=== PATIENT | female | born 1980 | race Caucasian/White ===

== ENCOUNTER 2018-05-31 10:06 | Emergency (ER) | payer BC ==
--- NOTE | 2018-05-31 11:48 | RAD REPORT ---
EXAM DESCRIPTION: CT - Stone Protocol - 05/31/2018 11:25 am CLINICAL HISTORY: Abdominal pain. Left-sided pain COMPARISON: None. TECHNIQUE: Computed axial tomography of the abdomen pelvis was obtained without oral or IV contrast. Lack of IV and oral contrast limits evaluation of solid organs, bowel, and vessels. Coronal reformat kaya images were obtained and reviewed. All CT scans are performed using dose optimization technique as appropriate and may include automated exposure control or mA/KV adjustment according to patient size. FINDINGS: A 12 millimeter calculus is present within the lower pole of the left kidney [place] it 1065. 3 millimeter left UVJ calculus with mild left hydronephrosis is seen The liver, spleen, pancreas and adrenals appear grossly normal There is no evidence of diverticulitis. The appendix appears normal A hysterectomy has been performed A 5.8 centimeter complex right ovarian low-density mass is present without significant free-fluid IMPRESSION: 3 millimeter left UVJ calculus with mild left hydronephrosis 5.8 complex right ovarian low-density mass likely representing a benign complex cyst. Follow-up ultra sound in a couple months is recommended to assess stability/resolution
[2018-05-31] MEDS ORDERED: ONDANSETRON 4 MG/2 ML VIAL ONE (12:13)
[2018-05-31] MEDS ORDERED: NA CHLORIDE 0.9% 1,000 ML ONE (12:13)
[2018-05-31] MEDS ORDERED: KETOROLAC 30 MG/ML INJ ONE (12:13)
[2018-05-31 12:22] LABS: Absolute Monocytes 0.5 K/uL (0.1-1.3); Absolute Neutrophil 4.9 K/uL (1.8-8.0); Eosinophils % 0.9 % (0-4.4); Hematocrit 44.1 % (36.0-45.0); MPV 9.7 fL (7.6-11.3); Monocytes % 7.6 % (3.3-12.3); RBC Red Blood Cell Count 4.87 M/uL (3.86-4.86)
[2018-05-31 12:27] LABS: ALT/SGPT 48 U/L (12-78); AST/SGOT 36 U/L (15-37); Albumin 3.7 g/dL (3.4-5.0); Alkaline Phosphatase 77 U/L (45-117); BUN Blood Urea Nitrogen 12 mg/dL (7-18); Bicarbonate 25 mmol/L (21-32); Bilirubin Direct < 0.1 mg/dL (0-0.2); Bilirubin Total 0.4 mg/dL (0.2-1.0); Glucose Level 90 mg/dL (74-106); Lipase 144 U/L (73-393); Potassium 3.8 mmol/L (3.5-5.1); Protein, Total 7.5 g/dL (6.4-8.2); Sodium Level 142 mmol/L (136-145)
--- NOTE | 2018-05-31 13:23 | ER ---
Nurse's Notes 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 Vomit x 1. Pt also kyle headache, sinus congestion, and body aches x 3 days. Transition of care: patient was not received from another setting of care. Onset of symptoms was May 28, 2018. Risk Assessment: Do you want to hurt yourself or someone else? Patient reports no desire to harm self or others. Care prior to arrival: None. 10:23 Method Of Arrival: Ambulatory hb 10:23 Acuity: CARLOS 3 hb 11:00 Initial Sepsis Screen: Does the patient meet any 2 criteria? No. Patient's initial rb1 sepsis screen is negative. Does the patient have a suspected source of infection? No. Patient's initial sepsis screen is negative. Triage Assessment: 11:00 GI: Reports nausea, vomiting. 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 - Social history:: Smoking status: Patient uses tobacco products, smokes one-half pack cigarettes per day. - Ebola Screening: : No symptoms or risks identified at this time. Screenin:00 Abuse screen: Denies threats or abuse. Nutritional screening: No deficits noted. rb1 Tuberculosis screening: No symptoms or risk factors identified. Fall Risk None identified. Assessment: 11:00 General: Appears in no apparent distress. comfortable, Behavior is calm, cooperative, rb1 Denies fever. Pain: Complains of pain in left flank Pain radiates to groin Pain currently is 1 out of 10 on a pain scale. Neuro: Level of Consciousness is awake, alert, obeys commands, Oriented to person, place, time, situation. Cardiovascular: Capillary refill < 3 seconds is brisk in bilateral fingers. Respiratory: Airway is patent Respiratory effort is even, unlabored, Respiratory pattern is regular, symmetrical. GI: Abdomen is non-distended, Last BM was May 31, 2018. : No signs and/or symptoms were reported regarding the genitourinary system. Derm: Skin is pink, warm \T\ dry. 12:00 Reassessment: Patient appears in no apparent distress at this time. No changes from rb1 previously documented assessment. Daughter at bedside. 13:00 Reassessment: Patient appears in no apparent distress at this time. Patient and/or rb1 family updated on plan of care and expected duration. Pain level reassessed. Patient is alert, oriented x 3, equal unlabored respirations, skin warm/dry/pink. Patient states feeling better. Vital Signs: 10:25 BP 147 / 102; Pulse 89; Resp 16; Temp 98.7; Pulse Ox 100% on R/A; Pain 1/10; hb 11:25 BP 111 / 72; Pulse 72; Resp 17; Pulse Ox 96% on R/A; rb1 12:12 BP 100 / 65; Pulse 73; Resp 16; Pulse Ox 95% on R/A; rb1 13:09 BP 109 / 77; Pulse 86; Resp 17; Pulse Ox 96% on R/A; rb1 ED Course: 10:10 Patient arrived in ED. rg4 10:10 Filemon Barnett MD is Private Physician. rg4 10:25 Triage completed. hb 10:26 Arm band placed on right wrist. hb 10:55 Naomi Farr, BRENDAN is Primary Nurse. rb1 10:59 Geoffrey Vega PA is PHCP. jmm 10:59 Darshan Frost MD is Attending Physician. jmm 11:00 Patient has correct armband on for positive identification. Bed in low position. Call rb1 light in reach. Side rails up X 1. Pulse ox on. NIBP on. 11:24 CT completed. Patient tolerated procedure well. Patient moved to CT via wheelchair. jg6 Patient moved back from CT. 11:26 CT Stone Protocol In Process Unspecified. EDMS 11:55 Inserted saline lock: 22 gauge in left antecubital area, using aseptic technique. Blood rb1 collected. 13:21 Teresa Haro MD is Referral Physician. [facility] 13:42 No provider procedures requiring assistance completed. IV discontinued, intact, rb1 bleeding controlled, No redness/swelling at site. Pressure dressing applied. Administered Medications: 12:05 Drug: NS 0.9% 1000 ml Route: IV; Rate: 1 bolus; Site: left antecubital; rb1 12:05 Drug: Zofran 4 mg Route: IVP; Site: left antecubital; rb1 12:20 Follow up: Response: No adverse reaction; Nausea is decreased rb1 12:05 Drug: Ketorolac 30 mg Route: IVP; Site: left antecubital; rb1 12:20 Follow up: Response: No adverse reaction; Pain is decreased rb1 Outcome: 13:22 Discharge ordered by . nemesio 13:42 Discharged to home ambulatory, with family. rb1 13:42 Condition: stable 13:42 Discharge instructions given to patient, Instructed on discharge instructions, follow up and referral plans. medication usage, Demonstrated understanding of instructions, follow-up care, medications, Prescriptions given X 4. 13:46 Patient left the ED. rb1 Signatures: Dispatcher [employer] EDMS Geoffrey Vega PA PA jmm Barber, Rebecca, RN RN rb1 Kindra Gregory, Iliana Arredondo RN4 Clarice Ching6
--- NOTE | 2018-05-31 13:23 | EDPHYS ---
Physician Documentation [facility] Name: Liana Chou Age: 38 yrs Sex: Female : 1980 Arrival Date: 05/31/2018 Time: 10:10 Bed 16 Private MD: Filemon Barnett T ED Physician Darshan Frost HPI: 05/31 11:14 This 38 yrs old Female presents to ER via Ambulatory with complaints of Flank jmm Pain, Vomiting. 11:14 The patient complains of pain in the left flank. The pain radiates to the groin. Onset: jmm The symptoms/episode began/occurred acutely, today. This is a 38 year old female that presents to the ED with left flank pain and vomiting beginning today. Patient states having ongoing symptoms of sinus congestion. Denies diarrhea. States symptoms are no similar to a previous episode of ruptured ovarian cyst. . 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 - Social history:: Smoking status: Patient uses tobacco products, smokes one-half pack cigarettes per day. - Ebola Screening: : No symptoms or risks identified at this time. ROS: 11:14 Constitutional: Negative for fever, chills, and weight loss, Eyes: Negative for injury, jmm pain, redness, and discharge, Cardiovascular: Negative for chest pain, palpitations, and edema. 11:14 ENT: Positive for sinus congestion. 11:14 Respiratory: Positive for cough. 11:14 Abdomen/GI: Positive for nausea and vomiting, flank pain. 11:14 All other systems are negative. Exam: 11:14 Constitutional: This is a well developed, well nourished patient who is awake, alert, jmm and in no acute distress. Head/Face: atraumatic. Eyes: EOMI, no conjunctival erythema appreciated ENT: Moist Mucus Membranes Neck: Trachea midline, Supple Chest/axilla: Normal chest wall appearance and motion. Cardiovascular: Regular rate and rhythm. No edema appreciated Respiratory: Normal respirations, no respiratory distress appreciated 11:14 Abdomen/GI: Inspection: abdomen appears normal, Bowel sounds: normal, Palpation: soft, mild abdominal tenderness, in the left lower quadrant. 11:14 Back: ROM is normal. 11:14 Musculoskeletal/extremity: ROM: intact in all extremities. 11:14 Skin: Appearance: Color: normal in color. 11:14 Neuro: Orientation: is normal, Mentation: is normal, Memory: is normal. 11:14 Psych: Behavior/mood is pleasant, cooperative. Vital Signs: 10:25 BP 147 / 102; Pulse 89; Resp 16; Temp 98.7; Pulse Ox 100% on R/A; Pain 1/10; hb 11:25 BP 111 / 72; Pulse 72; Resp 17; Pulse Ox 96% on R/A; rb1 12:12 BP 100 / 65; Pulse 73; Resp 16; Pulse Ox 95% on R/A; rb1 13:09 BP 109 / 77; Pulse 86; Resp 17; Pulse Ox 96% on R/A; rb1 MDM: 11:08 Patient medically screened. [facility] 13:20 Data reviewed: vital signs, nurses notes. Counseling: I had a detailed discussion with nemesio the patient and/or guardian regarding: the historical points, exam findings, and any diagnostic results supporting the discharge/admit diagnosis, lab results, radiology results, the need for outpatient follow up, to return to the emergency department if symptoms worsen or persist or if there are any questions or concerns that arise at home. ED course: Patient is alert and non toxic in appearance in the ED. Patient is able to tolerate PO. Patient given return precautions for increased pain, vomiting, ext. Patient understood and agrees with the plan of care. . 05/31 10:42 Order name: Urine Microscopic Only snw 05/31 11:12 Order name: Basic Metabolic Panel; Complete Time: 13: [facility] 05/31 11:12 Order name: CBC with Diff; Complete Time: 13: [facility] 05/31 11:12 Order name: Creatinine for Radiology; Complete Time: 13: [facility] 05/31 11:12 Order name: Hepatic Function; Complete Time: 13: [facility] 05/31 11:12 Order name: Lipase; Complete Time: 13:08 [facility] 05/31 11:12 Order name: IV Saline Lock; Complete Time: 12:00 [facility] 05/31 11:12 Order name: Labs collected and sent; Complete Time: 12:00 [facility] 05/31 11:13 Order name: CT Stone Protocol; Complete Time: 11:52 [facility] Administered Medications: 12:05 Drug: NS 0.9% 1000 ml Route: IV; Rate: 1 bolus; Site: left antecubital; rb1 12:05 Drug: Zofran 4 mg Route: IVP; Site: left antecubital; rb1 12:20 Follow up: Response: No adverse reaction; Nausea is decreased rb1 12:05 Drug: Ketorolac 30 mg Route: IVP; Site: left antecubital; rb1 12:20 Follow up: Response: No adverse reaction; Pain is decreased rb1 Disposition: 05/31/18 13:22 Discharged to Home. Impression: Calculus of kidney and ureter, Acute sinusitis. - Condition is Stable. - Discharge Instructions: Kidney Stones, Sinusitis, Adult, Dietary Guidelines to Help Prevent Kidney Stones. - Prescriptions for Zofran ODT 4 mg Oral tablet,disintegrating - place 1 tablet by TRANSLINGUAL route 4 times per day; 30 tablet. cefdinir 300 mg Oral capsule - take 1 capsule by ORAL route every 12 hours; 20 capsule. Tylenol- Codeine #3 300-30 mg Oral Tablet - take 1 tablet by ORAL route every 6 hours As needed; 12 tablet. Flomax 0.4 mg Oral Capsule, Sust. Release 24 hr - take 1 capsule by ORAL route once daily 1/2 hour following the same meal each day; 30 capsule. - Medication Reconciliation Form, Thank You Letter, Antibiotic Education, Prescription Opioid Use form. - Follow up: Teresa Haro MD; When: 2 - 3 days; Reason: Recheck today's complaints, Continuance of care, Re-evaluation by your physician. Addendum: 06/07/2018 09:21 Co-signature as Attending Physician, Darshan Frost MD I agree with the assessment and k dr plan of care. Signatures: Dispatcher [employer] EDMS Darshan Frost MD MD kdr Therrien, Shelly, FNP-Saran GARNER-Geoffrey Martinez PA PA [facility] Naomi Farr, RN RN rb1 Kindra Gregory RN RN Corrections: (The following items were deleted from the chart) 05/31 13:46 13:22 05/31/2018 13:22 Discharged to Home. Impression: Calculus of kidney and ureter; rb1 Acute sinusitis. Condition is Stable. Forms are Medication Reconciliation Form, Thank You Letter, Antibiotic Education, Prescription Opioid Use. Follow up: Teresa Haro; When: 2 - 3 days; Reason: Recheck today's complaints, Continuance of care, Re-evaluation by your physician. nemesio
[2018-05-31 16:04] LABS: Urine Bacteria >50 /HPF (<20); Urine Culture Reflex Order REFLEXED
== END 2018-05-31 13:46 | disposition home or self-care (01) ==
LOC: ER 10:06
DX: N13.2 Hydronephrosis with renal and ureteral calculous obstruction (principal); J01.90 Acute sinusitis, unspecified
CPT/HCPCS: 36415; 74176; 76377; 80048; 80076; 81015; 83690; 85025; 87086; 87088; J2405; J7030

== ENCOUNTER 2018-06-19 09:22 | Day surgery (SDC) | payer BC ==
[2018-06-19] MEDS ORDERED: GENTAMICIN 100 MG/100 ML BAG 100 ML IV ONE (09:48)
[2018-06-19] MEDS ORDERED: Ringers Lactate 1,000 ML IV ONE (09:48)
[2018-06-19] MEDS ORDERED: FENTANYL CITR 100 MCG/2 ML ONE (10:35)
[2018-06-19] MEDS ORDERED: PROPOFOL 200 MG/20 ML VIAL IV ONE (10:35)
[2018-06-19] MEDS ORDERED: MIDAZOLAM HCL 2 MG/2 ML INJ ONE (10:36)
[2018-06-19] MEDS ORDERED: LIDOCAINE 2% MPF 5 ML VIAL ONE (10:37)
[2018-06-19] MEDS ORDERED: ONDANSETRON 4 MG/2 ML VIAL ONE (10:38)
== END 2018-06-19 13:40 | disposition home or self-care (01) ==
LOC: OR 09:22
PROVIDERS: ATTEND Urology
PROC: 0TF4XZZ Fragmentation in Left Kidney Pelvis, External Approach (ICD-10-PCS; principal; 2018-06-19 10:45)
DX: N20.0 Calculus of kidney (principal); F17.210 Nicotine dependence, cigarettes, uncomplicated; E66.9 Obesity, unspecified; Z68.38 Body mass index [BMI] 38.0-38.9, adult
CPT/HCPCS: 50590; J1580; J2250; J2405; J2704; J3010

== ENCOUNTER 2018-07-24 10:09 | Day surgery (SDC) | payer BC ==
[2018-07-23 15:41] LABS: Urine Appearance CLOUDY; Urine Bilirubin NEGATIVE (NEG); Urine Blood NEGATIVE (NEG); Urine Color YELLOW; Urine Glucose NEGATIVE (NEG); Urine Protein NEGATIVE (NEG); Urine Specific Gravity 1.025 (1.005-1.030); Urine pH 7.5 (5.0-7.0)
[2018-07-23 15:48] LABS: Protime INR 0.96; Urine Microscopic Reflex ORDER UMIC
[2018-07-23 15:50] LABS: Absolute Monocytes 0.7 K/uL (0.1-1.3); Absolute Neutrophil 5.5 K/uL (1.8-8.0); Basophils % 1.1 % (0-1.3); Eosinophils % 1.6 % (0-4.4); Hematocrit 43.4 % (36.0-45.0); Lymphocytes % 23.9 % (15.3-44.8); MPV 10.2 fL (7.6-11.3); Monocytes % 8.1 % (3.3-12.3); RBC Red Blood Cell Count 4.84 M/uL (3.86-4.86)
[2018-07-23 15:54] LABS: Potassium 4.1 mmol/L (3.5-5.1)
[2018-07-23 16:05] LABS: Urine Bacteria 20-50 /HPF (<20); Urine Culture Reflex Order REFLEXED; Urine Mucus 2+ /HPF (NONE SEEN); Urine RBC <5 /HPF (NONE SEEN)
[2018-07-24] MEDS ORDERED: Ringers Lactate 1,000 ML IV ONE (10:44)
[2018-07-24] MEDS ORDERED: GENTAMICIN 80 MG/100 ML BAG 80 MG/100 ML BAG IV ONE (10:44)
--- NOTE | 2018-07-24 11:16 | RAD REPORT ---
EXAM DESCRIPTION: RAD - Abdomen 1 View (KUB) - 07/24/2018 10:52 am CLINICAL HISTORY: PREOP Pain COMPARISON: Abdomen 1 View (KUB) dated 07/12/2018; Abdomen 1 View (KUB) dated 06/07/2018 FINDINGS: The bowel gas pattern is non-obstructive. No evidence of free air or pneumatosis. [place] c alcification is seen inferior calyx left kidney. No significant bony findings. IMPRESSION: [place] calcification inferior calyx left kidney.
[2018-07-24] MEDS ORDERED: FENTANYL CITR 100 MCG/2 ML ONE (12:04)
[2018-07-24] MEDS ORDERED: PROPOFOL 200 MG/20 ML VIAL IV ONE (12:04)
[2018-07-24] MEDS ORDERED: ONDANSETRON 4 MG/2 ML VIAL ONE (12:05)
[2018-07-24] MEDS ORDERED: LIDOCAINE 2% MPF 5 ML VIAL ONE (12:05)
[2018-07-24] MEDS ORDERED: MIDAZOLAM HCL 2 MG/2 ML INJ ONE (12:05)
[2018-07-24] MEDS ORDERED: PROMETHAZINE 25 MG/ML VIAL ONE (13:47)
[2018-07-24] MEDS ORDERED: TRAMADOL HCL 50 MG TAB ONE (14:32)
== END 2018-07-24 15:34 | disposition home or self-care (01) ==
LOC: OR 10:09
PROVIDERS: ATTEND Urology
PROC: 0TF4XZZ Fragmentation in Left Kidney Pelvis, External Approach (ICD-10-PCS; principal; 2018-07-24 12:00)
DX: N20.0 Calculus of kidney (principal); N83.201 Unspecified ovarian cyst, right side; F17.210 Nicotine dependence, cigarettes, uncomplicated
CPT/HCPCS: 36415; 50590; 74018; 80048; 81003; 81015; 84100; 84550; 85025; 85610; 85730; 87086; 87088; J1580; J2250; J2405; J2550; J2704; J3010

== ENCOUNTER 2018-08-14 07:39 | Day surgery (SDC) | payer BC ==
[2018-08-10 12:12] LABS: Absolute Lymphocytes (CBC) 1.8 K/uL (0.7-4.9); Absolute Monocytes 0.7 K/uL (0.1-1.3); Absolute Neutrophil 4.8 K/uL (1.8-8.0); Basophils % 0.9 % (0-1.3); Eosinophils % 1.9 % (0-4.4); Hematocrit 42.8 % (36.0-45.0); Lymphocytes % 24.5 % (15.3-44.8); MPV 10.1 fL (7.6-11.3); Monocytes % 9.3 % (3.3-12.3); RBC Red Blood Cell Count 4.75 M/uL (3.86-4.86)
[2018-08-10 12:13] LABS: Urine Appearance CLEAR; Urine Bilirubin NEGATIVE (NEG); Urine Blood TRACE (NEG); Urine Color YELLOW; Urine Glucose NEGATIVE (NEG); Urine Protein NEGATIVE (NEG); Urine Urobilinogen 0.2 mg/dL (0.2-1.0); Urine pH 5.5 (5.0-7.0)
[2018-08-10 12:21] LABS: Protime INR 1.04
[2018-08-10 12:36] LABS: Urine Microscopic Reflex ORDER UMIC
[2018-08-10 12:44] LABS: Potassium 4.1 mmol/L (3.5-5.1)
[2018-08-10 12:45] LABS: Phosphorus 2.7 mg/dL (2.5-4.9); Uric Acid 4.7 mg/dL (2.6-6.0)
[2018-08-10 13:38] LABS: Urine Bacteria <20 /HPF (<20); Urine RBC <5 /HPF (NONE SEEN)
[2018-08-10 13:39] LABS: Urine Culture Reflex Order NOT NEEDED; Urine Mucus 2+ /HPF (NONE SEEN)
[2018-08-14] MEDS ORDERED: Ringers Lactate 1,000 ML IV ONE (08:04)
[2018-08-14] MEDS ORDERED: GENTAMICIN 80 MG/100 ML BAG 80 MG/100 ML BAG IV ONE (08:05)
--- NOTE | 2018-08-14 08:42 | RAD REPORT ---
EXAM DESCRIPTION: RAD - Abdomen 1 View (KUB) - 08/14/2018 8:09 am CLINICAL HISTORY: ICD N 20.0 FINDINGS: The bowel gas pattern is unremarkable. The patient's known oval calculus overlying the lower pole of the left kidney appears be present but is not as well seen
[2018-08-14] MEDS ORDERED: MIDAZOLAM HCL 2 MG/2 ML INJ ONE (09:37)
[2018-08-14] MEDS ORDERED: LIDOCAINE 1% MPF 5 ML VIAL ONE (09:37)
[2018-08-14] MEDS ORDERED: PROPOFOL 200 MG/20 ML VIAL IV ONE (09:37)
[2018-08-14] MEDS ORDERED: FENTANYL CITR 100 MCG/2 ML ONE ×2 (09:37→10:35)
[2018-08-14] MEDS ORDERED: ROCURONIUM 50 MG/5 ML VIAL IV ONE (09:37)
[2018-08-14] MEDS ORDERED: KETOROLAC 30 MG/ML INJ ONE (10:36)
[2018-08-14] MEDS ORDERED: DEXAMETHASONE 10 MG/ML VIAL ONE (10:36)
[2018-08-14] MEDS ORDERED: ONDANSETRON 4 MG/2 ML VIAL ONE (10:36)
[2018-08-14] MEDS ORDERED: GLYCOPYRROLATE 0.2 MG/ML SYR ONE ×3 (10:49→10:51)
[2018-08-14] MEDS ORDERED: NEOSTIGMINE 1 MG/ML -10 ML VIAL ONE (10:49)
[2018-08-14] MEDS ORDERED: PROMETHAZINE 25 MG/ML VIAL ONE (11:33)
[2018-08-14] MEDS ORDERED: METOCLOPRAMIDE 10 MG/2mL INJ ONE (11:42)
--- NOTE | 2018-08-14 11:42 | RAD REPORT ---
EXAM DESCRIPTION: RAD - Cystography - 08/14/2018 11:17 am CLINICAL HISTORY: CYSTOURETHROSCOPY, HOLIUM LASER, LITHOTRIPSY, STENT PLACE COMPARISON: No comparisons FINDINGS: Fluoroscopic imaging from cystoscopy procedure submitted. Details of the procedure not halie ilable. Total fluoro time: 7 minutes 11 seconds
== END 2018-08-14 13:05 | disposition home or self-care (01) ==
LOC: OR 07:39
PROVIDERS: ATTEND Urology
PROC: 0T778DZ Dilation of Left Ureter with Intraluminal Device, Via Natural or Artificial Opening Endoscopic (ICD-10-PCS; principal; 2018-08-14 09:15)
DX: N20.0 Calculus of kidney (principal); N83.201 Unspecified ovarian cyst, right side; F17.210 Nicotine dependence, cigarettes, uncomplicated
CPT/HCPCS: 36415; 51600; 74018; 74430; 80048; 81003; 81015; 84100; 84550; 85025; 85610; 85730; 87086; 87088; J1100; J1580; J2250; J2405; J2550; J2704; J2710; J2765; J3010; Q9967

== ENCOUNTER 2018-08-19 11:54 | Emergency (ER) | payer BC ==
[2018-08-19] MEDS ORDERED: ONDANSETRON 4 MG/2 ML VIAL ONE (12:31)
[2018-08-19] MEDS ORDERED: MORPHINE 4 MG/ML SYR ONE (12:31)
[2018-08-19 12:38] LABS: Absolute Monocytes 0.7 K/uL (0.1-1.3); Absolute Neutrophil 5.7 K/uL (1.8-8.0); Eosinophils % 2.4 % (0-4.4); Hematocrit 44.1 % (36.0-45.0); Lymphocytes % 23.3 % (15.3-44.8); MPV 9.5 fL (7.6-11.3)
[2018-08-19 12:57] LABS: ALT/SGPT 42 U/L (12-78); AST/SGOT 30 U/L (15-37); Albumin 3.8 g/dL (3.4-5.0); Alkaline Phosphatase 81 U/L (45-117); BUN Blood Urea Nitrogen 13 mg/dL (7-18); Bicarbonate 27 mmol/L (21-32); Bilirubin Direct < 0.1 mg/dL (0-0.2); Bilirubin Total 0.5 mg/dL (0.2-1.0); Glucose Level 81 mg/dL (74-106); Lipase 136 U/L (73-393); Potassium 4.2 mmol/L (3.5-5.1); Sodium Level 142 mmol/L (136-145)
--- NOTE | 2018-08-19 13:25 | RAD REPORT ---
EXAM DESCRIPTION: CT - Abdomen Pelvis W Contrast - 08/19/2018 12:37 pm CLINICAL HISTORY: Abdominal pain, left flank pain, history of accidental left stent removal COMPARISON: CT May 31, 2018 TECHNIQUE: Biphasic, helical CT imaging of the abdomen and pelvis was performed following 100 ml non -ionic IV contrast. Oral contrast was given. All CT scans are performed using dose optimization technique as appropriate and may include automated exposure control or mA/KV adjustment according to patient size. FINDINGS: No suspicious findings in the lung bases. The liver, spleen, and pancreas show no focal findings. Liver shows mild diffuse fatty infiltration. Gallbladder and biliary tree show no suspicious findings. Left renal function may be fractionally delayed relative to the right. Mild dilatation of left collec ting system is present. Lower calyx calculi are present. There is a punctate less than 1 millimeter c alcification at the left UPJ. Moore of the ureter and renal pelvis are mildly prominent. There is mil d thickening of the moore extending into the UVJ. Punctate air densities are present in the bladder l umen, not unexpected given the provided history. No bladder calculi are present. No pyelonephritis or acute parenchymal process. Urinary bladder is only partially filled. No adrenal abnormalities. No dilated bowel loops or bowel wall thickening. No free air, free fluid or inflammatory stranding. No hernia, mass or bulky lymphadenopathy. Uterus is absent. Left ovary is unremarkable. Right ovary contains 4.5 cm and 2.1 cm cysts. No suspicious characteristics. No suspicious bony findings. IMPRESSION: Mild hydronephrosis of the left collecting system with minimal wall thickening and edema . Nonobstructing calculi lower pole left kidney and punctate 1 mm calcification suspected left UPJ. Left renal function is fractionally delayed relative to the right probably due to wall thickening/ mu cosal edema at the UVJ. Additional nonacute findings detailed in the body of the report.
--- NOTE | 2018-08-19 14:41 | ER ---
Nurse's Notes [facility] Name: Liana Chou Age: 38 yrs Sex: Female : 1980 Arrival Date: 08/19/2018 Time: 11:55 Bed 17 Private MD: Teresa Haro A Diagnosis: Flank Pain Presentation: 08/19 11:58 Presenting complaint: Patient states: I had a left kidney stent in that I had placed on laMonday and when I wiped too hard it came out a little and then I just pulled it the rest of the way out. After that I started having severe pain and vomiting. Pt reports she was supposed to have it pulled tomorrow with Dr. Haro. Transition of care: patient was not received from another setting of care. Onset of symptoms was August 19, 2018. Risk Assessment: Do you want to hurt yourself or someone else? Patient reports no desire to harm self or others. Initial Sepsis Screen: Does the patient meet any 2 criteria? No. Patient's initial sepsis screen is negative. Does the patient have a suspected source of infection? No. Patient's initial sepsis screen is negative. Care prior to arrival: None. 11:58 Method Of Arrival: Ambulatory la1 11:58 Acuity: CARLOS 2 la1 Historical: - Allergies: 12:00 No Known Allergies; la1 - PMHx: 12:00 None; la1 - PSHx: 12:00 Hysterectomy; la1 - Immunization history:: Adult Immunizations up to date. - Social history:: Smoking status: Patient uses tobacco products, denies chronic smoking, but will smoke occasionally. - Ebola Screening: : No symptoms or risks identified at this time. Screenin:25 Abuse screen: Denies threats or abuse. Nutritional screening: No deficits noted. em Tuberculosis screening: No symptoms or risk factors identified. Fall Risk None identified. Assessment: 12:20 General: Appears in no apparent distress. uncomfortable, Behavior is calm, cooperative, em Denies fever. Pain: Complains of pain in abdomen diffusely Pain currently is 10 out of 10 on a pain scale. Quality of pain is described as sharp, shooting, Pain began 1 hour ago. Neuro: Level of Consciousness is awake, alert, obeys commands, Oriented to person, place, time, situation. Cardiovascular: Capillary refill < 3 seconds Patient's skin is warm and dry. Respiratory: Airway is patent Respiratory effort is even, unlabored, Respiratory pattern is regular, symmetrical. GI: Abdomen is round non-distended, Bowel sounds present X 4 quads. Abd is soft X 4 quads Abdomen is tender to palpation X 4 quads. Reports nausea, vomiting, Patient currently denies diarrhea. : Reports pulled kidney stent last night while wiping. Derm: Skin is intact, is healthy with good turgor, Skin is pink, warm \T\ dry. Musculoskeletal: Capillary refill < 3 seconds, Range of motion: intact in all extremities. 12:35 Reassessment: I agree with previous assessment. hb 13:00 Reassessment: Patient appears in no apparent distress at this time. Patient and/or em family updated on plan of care and expected duration. Pain level reassessed. Patient is alert, oriented x 3, equal unlabored respirations, skin warm/dry/pink. Patient denies pain at this time. Patient states feeling better. Patient states symptoms have improved. 14:29 Reassessment: Patient appears in no apparent distress at this time. Patient and/or em family updated on plan of care and expected duration. Pain level reassessed. Patient is alert, oriented x 3, equal unlabored respirations, skin warm/dry/pink. resting comfortably with eyes closed, family at bedside. Vital Signs: 12:00 BP 145 / 101; Pulse 97; Resp 16; Temp 97.8; Pulse Ox 98% on R/A; Weight 114.31 kg; la1 Height 5 ft. 8 in. (172.72 cm); Pain 10/10; 12:55 BP 115 / 75; Pulse 66; Resp 18; Pulse Ox 99% on R/A; Pain 0/10; em 14:00 BP 113 / 79; Pulse 59; Resp 18; Pulse Ox 99% on R/A; Pain 0/10; em 12:00 Body Mass Index 38.32 (114.31 kg, 172.72 cm) la1 ED Course: 11:55 Patient arrived in ED. as 11:56 Teresa Haro MD is Private Physician. as 12:00 Triage completed. la1 12:00 Arm band placed on left wrist. la1 12:03 [facility] 12:03 Gaston Argueta MD is Attending Physician. [facility] 12:15 Sulaiman Cooney LVN is Primary Nurse. em 12:25 Patient has correct armband on for positive identification. Bed in low position. Call em light in reach. Side rails up X2. Adult w/ patient. Pulse ox on. NIBP on. 12:[address] mw3 12:30 Initial lab(s) drawn, by me, sent to lab. Inserted saline lock: 20 gauge in left em antecubital area, using aseptic technique. Blood collected. 12:34 CT completed. Patient tolerated procedure well. Patient moved back from CT. mw3 12:37 CT Abd/Pelvis - W/Contrast In Process Unspecified. EDMS 14:41 Teresa Haro MD is Referral Physician. m 15:14 No provider procedures requiring assistance completed. IV discontinued, intact, em bleeding controlled, No redness/swelling at site. Pressure dressing applied. Administered Medications: 12:29 Drug: morphine 4 mg Route: IVP; Site: left antecubital; la1 12:29 Drug: Zofran 4 mg Route: IVP; Site: left antecubital; la1 Outcome: 14:41 Discharge ordered by MD. m 15:14 Discharged to home ambulatory, with family. em 15:14 Condition: good 15:14 Discharge instructions given to patient, family, Instructed on discharge instructions, follow up and referral plans. medication usage, Demonstrated understanding of instructions, follow-up care, medications, Prescriptions given X 1. 15:14 Patient left the ED. em Signatures: Dispatcher [employer] EDMS Geoffrey Vega PA PA [facility] Sulaiman Cooney LVN LVN em Mary Ellen Nguyen Lee, RN RN la1 Kindra Gregory, BRENDAN RN Jane Gomes mw3
--- NOTE | 2018-08-19 14:42 | EDPHYS ---
Physician Documentation [facility] Name: Liana Chou Age: 38 yrs Sex: Female : 1980 Arrival Date: 08/19/2018 Time: 11:55 Bed 17 Private MD: Teresa Haro, A ED Physician Gaston Argueta HPI: 08/19 12:05 This 38 yrs old Female presents to ER via Ambulatory with complaints of Flank jmm Pain, Abdominal Pain. 12:05 The patient complains of pain in the left flank. Onset: The symptoms/episode jmm began/occurred acutely. Associated signs and symptoms: Pertinent positives: vomiting. This is a 38 year old female with no chronic medical conditions that presents to the ED with complaints of left flank pain, left lower abdominal pain beginning after pulling her ureteral stent out. Patient denies vaginal bleeding or dysuria. Historical: - Allergies: 12:00 No Known Allergies; la1 - PMHx: 12:00 None; la1 - PSHx: 12:00 Hysterectomy; la1 - Immunization history:: Adult Immunizations up to date. - Social history:: Smoking status: Patient uses tobacco products, denies chronic smoking, but will smoke occasionally. - Ebola Screening: : No symptoms or risks identified at this time. ROS: 12:05 Constitutional: Negative for fever, chills, and weight loss, Cardiovascular: Negative jmm for chest pain, palpitations, and edema, Respiratory: Negative for shortness of breath, cough, wheezing, and pleuritic chest pain. 12:05 Abdomen/GI: Positive for abdominal pain, nausea and vomiting. 12:05 Back: Positive for flank pain, on the left. 12:05 All other systems are negative. Exam: 12:05 Head/Face: atraumatic. Eyes: EOMI, no conjunctival erythema appreciated ENT: Moist jmm Mucus Membranes Neck: Trachea midline, Supple Chest/axilla: Normal chest wall appearance and motion. Cardiovascular: Regular rate and rhythm. No edema appreciated Respiratory: Normal respirations, no respiratory distress appreciated 12:05 Constitutional: The patient appears alert, awake, uncomfortable. 12:05 Abdomen/GI: Inspection: abdomen appears normal, Bowel sounds: normal, Palpation: soft, moderate abdominal tenderness, in the left lower quadrant. 12:05 Musculoskeletal/extremity: ROM: intact in all extremities. 12:05 Skin: Appearance: Color: normal in color. 12:05 Neuro: Orientation: is normal, Mentation: is normal, Memory: is normal. 12:05 Psych: Behavior/mood is pleasant, cooperative. Vital Signs: 12:00 BP 145 / 101; Pulse 97; Resp 16; Temp 97.8; Pulse Ox 98% on R/A; Weight 114.31 kg; la1 Height 5 ft. 8 in. (172.72 cm); Pain 10/10; 12:55 BP 115 / 75; Pulse 66; Resp 18; Pulse Ox 99% on R/A; Pain 0/10; em 14:00 BP 113 / 79; Pulse 59; Resp 18; Pulse Ox 99% on R/A; Pain 0/10; em 12:00 Body Mass Index 38.32 (114.31 kg, 172.72 cm) la1 MDM: 12:05 Patient medically screened. [facility] 14:39 Data reviewed: vital signs, nurses notes. Counseling: I had a detailed discussion with nemesio the patient and/or guardian regarding: the historical points, exam findings, and any diagnostic results supporting the discharge/admit diagnosis, lab results, radiology results, the need for outpatient follow up. ED course: Patient states that she feels much better in the ED. Patient is able to tolerate PO. I discussed the patient with Dr. Haro whom will see patient in clinic tomorrow. Patient is otherwise given strict return precautions. patient understood and and agrees with the plan of care. . 08/19 12:09 Order name: Basic Metabolic Panel; Complete Time: 13:01 [facility] 08/19 12:09 Order name: CBC with Diff; Complete Time: 12:50 [facility] 08/19 12:09 Order name: Creatinine for Radiology; Complete Time: 13:01 [facility] 08/19 12:09 Order name: Hepatic Function; Complete Time: 13:01 [facility] 08/19 12:09 Order name: Lipase; Complete Time: 13:01 [facility] 08/19 12:09 Order name: CT Abd/Pelvis - W/Contrast; Complete Time: 13:29 [facility] 08/19 12:09 Order name: IV Saline Lock; Complete Time: 12:29 [facility] 08/19 12:09 Order name: Labs collected and sent; Complete Time: 12:29 [facility] Administered Medications: 12:29 Drug: morphine 4 mg Route: IVP; Site: left antecubital; la1 12:29 Drug: Zofran 4 mg Route: IVP; Site: left antecubital; la1 Disposition: 08/20 08:05 Co-signature as Attending Physician, Gaston Argueta MD I agree with the assessment and nita plan of care. Disposition: 08/19/18 14:41 Discharged to Home. Impression: Flank Pain. - Condition is Stable. - Discharge Instructions: Flank Pain, Adult. - Prescriptions for Ultracet 37.5- 325 mg Oral Tablet - take 1 tablet by ORAL route every 6 hours - for up to 5 days; do not exceed 8 tablets per day.; 12 tablet. - Medication Reconciliation Form, Thank You Letter, Antibiotic Education, Prescription Opioid Use form. - Follow up: Teresa Haro MD; When: Tomorrow; Reason: Recheck today's complaints, Continuance of care, Re-evaluation by your physician. Signatures: Dispatcher [employer] EDGaston Malik MD MD cha Mickail, Joel, PA PA Sulaiman Velazquez, TEXTILE MACHINERY INSTRUCTOR TEXTILE MACHINERY INSTRUCTOR em Tyler Thompson RN RN la1 Corrections: (The following items were deleted from the chart) 08/19 15:14 14:41 08/19/2018 14:41 Discharged to Home. Impression: Flank Pain. Condition is Stable. em Forms are Medication Reconciliation Form, Thank You Letter, Antibiotic Education, Prescription Opioid Use. Follow up: Teresa Haro; When: Tomorrow; Reason: Recheck today's complaints, Continuance of care, Re-evaluation by your physician. nemesio
== END 2018-08-19 15:14 | disposition home or self-care (01) ==
LOC: ER 11:54
DX: R10.32 Left lower quadrant pain (principal); Z72.0 Tobacco use
CPT/HCPCS: 36415; 74177; 80048; 80076; 83690; 85025; 96374; 96375; 99284; J2405; Q9967

== ENCOUNTER 2018-08-20 12:27 | Day surgery (SDC) | payer BC ==
[2018-08-20] MEDS ORDERED: Ringers Lactate 1,000 ML IV ONE (12:51)
[2018-08-20] MEDS ORDERED: SCOPOLAMINE HYDROBROMIDE PATCH TD ONE (12:54)
[2018-08-20] MEDS ORDERED: GENTAMICIN 80 MG/100 ML BAG 80 MG/100 ML BAG IV ONE (12:54)
[2018-08-20] MEDS ORDERED: FENTANYL CITR 100 MCG/2 ML ONE ×2 (13:08→13:11)
[2018-08-20] MEDS ORDERED: PROPOFOL 200 MG/20 ML VIAL IV ONE (13:10)
[2018-08-20] MEDS ORDERED: MIDAZOLAM HCL 2 MG/2 ML INJ ONE (13:11)
[2018-08-20] MEDS ORDERED: LIDOCAINE 2% MPF 5 ML VIAL ONE (13:11)
[2018-08-20] MEDS ORDERED: ONDANSETRON 4 MG/2 ML VIAL ONE (13:12)
--- NOTE | 2018-08-20 15:11 | RAD REPORT ---
EXAM DESCRIPTION: RAD - Urethrocystogrphy Retrograde - 08/20/2018 3:03 pm FINDINGS: Approximately 5 fluoroscopic images were obtained during fluoroscopic assisted placement o f a left ureteral stent. No suspicious or unexpected findings. Fluoro time was 0.31 minutes
== END 2018-08-20 15:57 | disposition home or self-care (01) ==
LOC: OR 12:27
PROVIDERS: ATTEND Urology
PROC: 0T778DZ Dilation of Left Ureter with Intraluminal Device, Via Natural or Artificial Opening Endoscopic (ICD-10-PCS; principal; 2018-08-20 14:00)
DX: N20.2 Calculus of kidney with calculus of ureter (principal); Q62.39 Other obstructive defects of renal pelvis and ureter; F17.210 Nicotine dependence, cigarettes, uncomplicated; Z90.710 Acquired absence of both cervix and uterus
CPT/HCPCS: 51610; 74450; J1580; J2250; J2405; J2704; J3010; Q9967

== ENCOUNTER 2018-09-04 21:23 | Emergency (ER) | payer BC ==
[2018-09-04 22:20] LABS: Urine Blood 2+ (NEG); Urine Glucose NEGATIVE (NEG); Urine Protein NEGATIVE (NEG); Urine Specific Gravity 1.015 (1.005-1.030); Urine pH 5.5 (5.0-7.0)
[2018-09-04 22:29] LABS: Urine Bacteria 20-50 /HPF (<20); Urine RBC 20-50 /HPF (NONE SEEN)
[2018-09-04 22:30] LABS: Urine Culture Reflex Order NOT NEEDED
[2018-09-04] MEDS ORDERED: NA CHLORIDE 0.9% 1,000 ML ONE (22:32)
[2018-09-04 22:48] LABS: Absolute Lymphocytes (CBC) 0.9 K/uL (0.7-4.9); Absolute Monocytes 0.7 K/uL (0.1-1.3); Absolute Neutrophil 9.2 K/uL (1.8-8.0); Basophils % 0.7 % (0-1.3); Eosinophils % 1.1 % (0-4.4); Hematocrit 38.5 % (36.0-45.0); MPV 10.4 fL (7.6-11.3); Monocytes % 6.1 % (3.3-12.3); RBC Red Blood Cell Count 4.34 M/uL (3.86-4.86)
[2018-09-04 22:54] LABS: Potassium 3.5 mmol/L (3.5-5.1)
--- NOTE | 2018-09-05 00:43 | EDPHYS ---
Physician Documentation [facility] Name: Liana Chou Age: 38 yrs Sex: Female : 1980 Arrival Date: 09/04/2018 Time: 21:24 Bed 24 Private MD: Filemon Barnett T ED Physician Delfin Contreras HPI: 09/04 22:07 This 38 yrs old Female presents to ER via Ambulatory with complaints of Flu snw Symptoms. 22:07 c/o fatigue, chills, cough, states everything just hit her like a ton of bricks. Onset: snw The symptoms/episode began/occurred suddenly. Severity of symptoms: At their worst the symptoms were moderate severe. The patient has not experienced similar symptoms in the past. The patient has been recently seen by a physician: Dr. Haro. 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 - Social history:: Smoking status: Patient uses tobacco products, smokes one-half pack cigarettes per day. - Ebola Screening: : No symptoms or risks identified at this time. ROS: 22:00 Eyes: Negative for injury, pain, redness, and discharge, ENT: Negative for injury, snw pain, and discharge, Neck: Negative for injury, pain, and swelling, Cardiovascular: Negative for chest pain, palpitations, and edema. 22:00 Abdomen/GI: Negative for abdominal pain, nausea, vomiting, diarrhea, and constipation. 22:00 Constitutional: Positive for body aches, chills, malaise, poor PO intake. 22:00 Respiratory: Positive for cough, with no reported sputum. 22:00 Back: Positive for pain at rest, pain with movement. 22:00 : Positive for urinary symptoms, pt taking Macrobid per Dr. Haro since yesterday. Pt had urinary stent removed 1.5 weeks ago. 22:00 MS/extremity: Positive for pain all over. 22:00 Skin: Positive for "hurts". 22:00 Neuro: Positive for headache, fatigue. Exam: 22:00 Head/Face: Normocephalic, atraumatic. Eyes: Pupils equal round and reactive to light, snw extra-ocular motions intact. Lids and lashes normal. Conjunctiva and sclera are non-icteric and not injected. Cornea within normal limits. Periorbital areas with no swelling, redness, or edema. ENT: Nares patent. No nasal discharge, no septal abnormalities noted. Tympanic membranes are normal and external auditory canals are clear. Oropharynx with no redness, swelling, or masses, exudates, or evidence of obstruction, uvula midline. Mucous membranes moist. Neck: Trachea midline, no thyromegaly or masses palpated, and no cervical lymphadenopathy. Supple, full range of motion without nuchal rigidity, or vertebral point tenderness. No Meningismus. Chest/axilla: Normal chest wall appearance and motion. Nontender with no deformity. No lesions are appreciated. 22:00 Respiratory: Lungs have equal breath sounds bilaterally, clear to auscultation and percussion. No rales, rhonchi or wheezes noted. No increased work of breathing, no retractions or nasal flaring. Abdomen/GI: Soft, non-tender, with normal bowel sounds. No distension or tympany. No guarding or rebound. No evidence of tenderness throughout. Back: No spinal tenderness. No costovertebral tenderness. Full range of motion. Skin: Warm, dry with normal turgor. Normal color with no rashes, no lesions, and no evidence of cellulitis. MS/ Extremity: Pulses equal, no cyanosis. Neurovascular intact. Full, normal range of motion. Neuro: Awake and alert, GCS 15, oriented to person, place, time, and situation. Cranial nerves II-XII grossly intact. Motor strength 5/5 in all extremities. Sensory grossly intact. Cerebellar exam normal. Normal gait. 22:00 Constitutional: The patient appears alert, awake, febrile. 22:00 Cardiovascular: Rate: tachycardic, Rhythm: regular. Vital Signs: 21:31 BP 134 / 89; Pulse 122; Resp 18; Temp 100; Pulse Ox 94% on R/A; Weight 114.31 kg (R); ak1 Height 5 ft. 8 in. (172.72 cm) (R); Pain 7/10; 23:19 BP 119 / 87; Pulse 94; Resp 18; Pulse Ox 96% on R/A; ea 09/05 00:20 BP 93 / 66; Pulse 95; Resp 18; Temp 97.9; Pulse Ox 95% on R/A; ea 01:00 BP 100 / 60; Pulse 89; Resp 16; Pulse Ox 97% on R/A; ea 09/04 21:31 Body Mass Index 38.32 (114.31 kg, 172.72 cm) ak1 MDM: 09/04 21:53 Patient medically screened. snw 09/05 00:46 Data reviewed: vital signs, nurses notes. Data interpreted: Pulse oximetry: on room air snw is 95 %. Interpretation: normal. Counseling: I had a detailed discussion with the patient and/or guardian regarding: the historical points, exam findings, and any diagnostic results supporting the discharge/admit diagnosis, lab results, radiology results, the need for outpatient follow up, to return to the emergency department if symptoms worsen or persist or if there are any questions or concerns that arise at home. Response to treatment: the patient's symptoms have markedly improved after treatment. Special discussion: Based on the history and exam findings, there is no indication for further emergent testing or inpatient evaluation. I discussed with the patient/guardian the need to see the primary care provider for further evaluation of the symptoms. I discussed with the patient/guardian the need to see the urologist for further evaluation of the symptoms. 09/04 21:25 Order name: Urine Culture formerly [facility] 09/04 21:25 Order name: Urine Microscopic Only; Complete Time: 22:31 w 09/04 21:25 Order name: Flu; Complete Time: 22:15 snw 09/04 21:56 Order name: CBC with Diff; Complete Time: 23:08 snw 09/04 21:56 Order name: Chem 7; Complete Time: 23:08 w 09/04 21:56 Order name: Blood Culture Adult (2) w 09/04 21:56 Order name: CPK; Complete Time: 23:08 snw 09/04 21:56 Order name: Strep; Complete Time: 23:08 snw 09/04 22:09 Order name: Urine Dipstick--Ancillary (enter results); Complete Time: 22:23 ar5 09/04 22:09 Order name: Urine --Ancillary (enter results); Complete Time: 22:23 ar5 09/04 23:09 Order name: CT Abd/Pelvis - W/Contrast snw 09/04 23:09 Order name: Throat Culture EDMS 09/04 23:30 Order name: CT Chest For PE Angio snw 09/04 21:25 Order name: Urine Test (obtain specimen); Complete Time: 22:23 snw 09/04 21:25 Order name: Urine Dipstick-Ancillary (obtain specimen); Complete Time: 22:23 snw Administered Medications: 09/04 22:23 Drug: NS 0.9% 1000 ml Route: IV; Rate: 1 bolus; Site: left antecubital; mg2 09/05 00:00 Follow up: Response: No adverse reaction; IV Status: Completed infusion; IV Intake: ea 1000ml Disposition: 02:47 Co-signature as Attending Physician, Delfin Contreras MD. rn Disposition: 09/05/18 00:42 Discharged to Home. Impression: Hydronephrosis, Fever presenting with conditions classified elsewhere, Acute upper respiratory infection, unspecified. - Condition is Stable. - Discharge Instructions: Fever, Adult, Upper Respiratory Infection, Adult, Dietary Guidelines to Help Prevent Kidney Stones, Rehydration, Adult. - Prescriptions for Ultram 50 mg Oral Tablet - take 1 tablet by ORAL route every 6 hours As needed; 15 tablet. Albuterol Sulfate 90 mcg/actuation - inhale 1-2 puff by INHALATION route every 4-6 hours; 1 Inhaler. - Work release form, Medication Reconciliation Form, Thank You Letter, Antibiotic Education, Prescription Opioid Use form. - Follow up: Filemon Barnett MD; When: 2 - 3 days; Reason: Recheck today's complaints, Continuance of care, Re-evaluation by your physician. Follow up: Emergency Department; When: As needed; Reason: Worsening of condition. Signatures: Dispatcher [employer] [facility] Viri Mansfield, WASHING MACHINE STRIPER-C WASHING MACHINE STRIPER-Csnw Delfin Contreras MD MD rn Krenek, Amber RN RN Bebe Russo RN RN ea Gardose, Michele, RN RN mg2 Corrections: (The following items were deleted from the chart) 00:22 09/04 23:50 Abdomen W/ Con+CT.RAD.BRZ ordered. [facility] 09/05 01:17 00:42 09/05/2018 00:42 Discharged to Home. Impression: Hydronephrosis; Fever presenting ea with conditions classified elsewhere; Acute upper respiratory infection, unspecified. Condition is Stable. Forms are Medication Reconciliation Form, Thank You Letter, Antibiotic Education, Prescription Opioid Use. Follow up: Filemon Barnett; When: 2 - 3 days; Reason: Recheck today's complaints, Continuance of care, Re-evaluation by your physician. Follow up: Emergency Department; When: As needed; Reason: Worsening of condition. snw
--- NOTE | 2018-09-05 00:43 | ER ---
Nurse's Notes [facility] Name: Liana Chou Age: 38 yrs Sex: Female : 1980 Arrival Date: 09/04/2018 Time: 21:24 Bed 24 Private MD: Filemon Barnett T Diagnosis: Hydronephrosis;Fever presenting with conditions classified elsewhere;Acute upper respiratory infection, unspecified Presentation: 09/04 21:32 Presenting complaint: Patient states: fever, body aches, SOB started at 1600 today. ak1 motrin at 2100. pt started macrobid yesterday. Transition of care: patient was not received from another setting of care. Onset of symptoms was September 04, 2018. Risk Assessment: Do you want to hurt yourself or someone else? Patient reports no desire to harm self or others. Care prior to arrival: None. 21:32 Method Of Arrival: Ambulatory ak1 21:32 Acuity: CARLOS 3 ak1 22:16 Initial Sepsis Screen: Does the patient meet any 2 criteria? HR > 90 bpm. Yes Does the ea patient have a suspected source of infection? No. Patient's initial sepsis screen is negative. 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 - Social history:: Smoking status: Patient uses tobacco products, smokes one-half pack cigarettes per day. - Ebola Screening: : No symptoms or risks identified at this time. Screenin:40 Abuse screen: Denies threats or abuse. Nutritional screening: No deficits noted. ea Tuberculosis screening: No symptoms or risk factors identified. Fall Risk None identified. Assessment: 23:15 General: Appears uncomfortable, Behavior is calm, cooperative, appropriate for age. ea Pain: Complains of pain in body aches. Neuro: Level of Consciousness is awake, alert, obeys commands, Oriented to person, place, time, situation. Cardiovascular: Patient's skin is warm and dry. Respiratory: Airway is patent Respiratory effort is even, unlabored, Respiratory pattern is regular, symmetrical. GI: Abdomen is non-distended. Derm: Skin is dry, Skin is pale, Skin temperature is warm. Musculoskeletal: Circulation, motion, and sensation intact. 23:46 Reassessment: Patient and/or family updated on plan of care and expected duration. Pain ea level reassessed. Patient is alert, oriented x 3, equal unlabored respirations, skin warm/dry/pink. Pt taken to CT. 09/05 00:30 Reassessment: Patient and/or family updated on plan of care and expected duration. Pain ea level reassessed. Patient is alert, oriented x 3, equal unlabored respirations, skin warm/dry/pink. 01:12 Reassessment: Patient and/or family updated on plan of care and expected duration. Pain ea level reassessed. Patient is alert, oriented x 3, equal unlabored respirations, skin warm/dry/pink. Discharge instruction given to patient, verbalized the understanding of instruction. No s/s of pain or discomfort noted at this time. Pt left ED ambulatory with family, tolerating well. Vital Signs: 09/04 21:31 BP 134 / 89; Pulse 122; Resp 18; Temp 100; Pulse Ox 94% on R/A; Weight 114.31 kg (R); ak1 Height 5 ft. 8 in. (172.72 cm) (R); Pain 7/10; 23:19 BP 119 / 87; Pulse 94; Resp 18; Pulse Ox 96% on R/A; ea 09/05 00:20 BP 93 / 66; Pulse 95; Resp 18; Temp 97.9; Pulse Ox 95% on R/A; ea 01:00 BP 100 / 60; Pulse 89; Resp 16; Pulse Ox 97% on R/A; ea 09/04 21:31 Body Mass Index 38.32 (114.31 kg, 172.72 cm) ak1 ED Course: 09/04 21:24 Patient arrived in ED. am2 21:24 Filemon Barnett MD is Private Physician. am2 21:25 [facility]C [facility] snw 21:25 Delfin Contreras MD is Attending Physician. snw 21:32 Triage completed. ak1 21:33 Arm band placed on Patient placed in an exam room, on a stretcher, on pulse oximetry, ak1 Patient notified of wait time. 21:37 Flu and/or RSV swab sent to lab. ak1 21:49 Bebe Verdin, RN is Primary Nurse. ea 22:23 No provider procedures requiring assistance completed. Inserted saline lock: 20 gauge mg2 in left antecubital area, using aseptic technique. Blood collected. 22:40 Patient has correct armband on for positive identification. Bed in low position. Call ea light in reach. Side rails up X2. 09/05 00:22 CT Abd/Pelvis - W/Contrast In Process Unspecified. EDMS 00:22 CT Chest For PE Angio In Process Unspecified. EDMS 00:41 Filemon Barnett MD is Referral Physician. snw 01:00 IV discontinued, intact, bleeding controlled, No redness/swelling at site. Pressure ea dressing applied. Administered Medications: 09/04 22:23 Drug: NS 0.9% 1000 ml Route: IV; Rate: 1 bolus; Site: left antecubital; mg2 09/05 00:00 Follow up: Response: No adverse reaction; IV Status: Completed infusion; IV Intake: ea 1000ml Intake: 00:00 IV: 1000ml; Total: 1000ml. ea Outcome: 00:42 Discharge ordered by . snw 01:13 Discharged to home ambulatory, with family. ea 01:13 Condition: improved 01:13 Discharge instructions given to patient, Instructed on discharge instructions, follow up and referral plans. medication usage, Demonstrated understanding of instructions, follow-up care, medications, Prescriptions given X 2. 01:17 Patient left the ED. ea Signatures: Dispatcher [employer] [facility] Viri Mansfield, LINE MECHANIC-C LINE MECHANIC-Csnw Sandhya Galicia RN RN ak1 Moreno, Amanda am2 Bebe Verdin RN RN ea Gardose, Michele, RN RN mg2 Corrections: (The following items were deleted from the chart) 01:16 01:15 BP 100 / 60; Pulse 89bpm; Resp 16bpm; Pulse Ox 97% RA; ea ea
--- NOTE | 2018-09-06 11:41 | RAD REPORT ---
EXAM DESCRIPTION: CT - Abdomen Pelvis W Contrast - 09/05/2018 1:41 am CLINICAL HISTORY: Abd pain;Hematuria;Flank pain COMPARISON: August 19, 2018. TECHNIQUE: CT ABDOMEN PELVIS WITH IV CONTRAST on 09/04/2018 11:09 PM CDT This exam was performed according to our departmental dose-optimization program, which includes autom ated exposure control, adjustment of the mA and/or kV according to patient size and/or use of iterati ve reconstruction technique. FINDINGS: Lower lungs are clear. Abdomen: Liver is mildly fatty in attenuation. There is no biliary dilatation. Gallbladder is normall y distended. The pancreas and spleen are normal in appearance. Adrenal glands are normal. There are t wo lower pole left renal calculi measuring up to 3 mm. There is mild left hydronephrosis. Abdominal aorta is normal in course and caliber without aneurysm. There is no free air. There is no r etroperitoneal adenopathy. Pelvis: There is mild diverticulosis of the distal colon. Urinary bladder is unremarkable. There is n o free fluid. Hysterectomy was performed. Right ovarian cyst measures at least 5.4 cm. Appendix is no rmal. Skeleton: There are no acute osseous findings. No suspicious bony lesions. IMPRESSION: Continued mild residual left hydronephrosis with no clear obstructing ureteral stone. Di stal ureteral soft tissue lesion is not excluded. 5.4 cm benign appearing ovarian cyst. Recommend follow-up pelvic US in 6-12 weeks. Reference: J Am Anitha Radiol 2013;10:[id number] Electronically signed by: Julien Torres MD 09/05/2018 12:28 AM CDT Due to temporary technical issues with the PACS/Fluency reporting system, reports are being signed by the in house radiologist as a courtesy to ensure prompt reporting. The interpreting radiologist is f ully responsible for the content of the report.
--- NOTE | 2018-09-06 11:42 | RAD REPORT ---
EXAM DESCRIPTION: CT - Chest For Pe Angio - 09/05/2018 1:41 am CLINICAL HISTORY: Shortness of breath. COMPARISON: None. TECHNIQUE: CT angiogram of the chest with IV contrast. 3-D MIP images were obtained in coronal and s agittal reconstructions. This exam was performed according to our departmental dose-optimization prog belkys, which includes automated exposure control, adjustment of the mA and/or kV according to patient s ize and/or use of iterative reconstruction technique. FINDINGS: No filling defects are seen in the pulmonary trunk or the left and right main pulmonary ar giorgi. There is limited evaluation of the segmental branches due to motion artifact. No aortic aneur ysm or dissection is seen. The thyroid gland is normal. No mediastinal or hilar adenopathy. The heart size is normal without per icardial effusion. No consolidation, pleural effusion, or pneumothorax is identified. The visualized upper abdomen demonstrates no acute findings. No acute osseous findings are seen. IMPRESSION: No central pulmonary embolism. Electronically signed by: Zafar Balderas MD 09/05/2018 12:31 AM CDT Due to temporary technical issues with the PACS/Fluency reporting system, reports are being signed by the in house radiologist as a courtesy to ensure prompt reporting. The interpreting radiologist is f ully responsible for the content of the report.
== END 2018-09-05 01:17 | disposition home or self-care (01) ==
LOC: ER 21:23
DX: J06.9 Acute upper respiratory infection, unspecified (principal); N13.30 Unspecified hydronephrosis; F17.210 Nicotine dependence, cigarettes, uncomplicated; Z87.442 Personal history of urinary calculi
CPT/HCPCS: 36415; 71275; 74177; 80048; 81003; 81015; 81025; 82550; 85025; 87040; 87070; 87081; 87086; 87088; 87804; 96360; 96361; 99284; J7030; Q9967